=== PATIENT | male | born 2000 | race Caucasian/White ===

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

== ENCOUNTER → 2022-07-03 | Outpatient (CLI) | payer BC ==
--- NOTE | 2022-07-03 16:11 | US ---
EXAMINATION TYPE: US scrotum with doppler. Grayscale and color Doppler Duplex imaging performed of t he scrotum. DATE OF EXAM: 07/03/2022 COMPARISON: NONE CLINICAL HISTORY: N50.811 rt testicular pain. EXAM MEASUREMENTS: TESTICLES: Right Testicle: 4.5 x 2.5 x 3.1 cm Left Testicle: 4.3 x 2.3 x 3.0 cm EPIDIDYMIS HEAD: Right Epididymis: 1.1 cm Left Epididymis: 1.0 cm Doppler performed to assess for testicular vascularity; good bilateral color flow and waveforms are s een. There is no evidence of testicular torsion. Presence of hydroceles: no Presence of varicoceles: no Normal appearing testicular ultrasound. IMPRESSION: Appropriate color Doppler flow to the right testis including arterial and venous spectral waveforms.
== END | disposition home or self-care (01) ==
LOC: RADUSWWP 15:29
PROVIDERS: ATTEND Student in an Organized Health Care Education/Training Program
DX: N50.811 Right testicular pain (principal)
CPT/HCPCS: 76870; 93975

== ENCOUNTER → 2023-10-20 | Outpatient (CLI) | payer BC ==
--- NOTE | 2023-10-21 08:01 | US ---
EXAMINATION TYPE: US liver DATE OF EXAM: 10/20/2023 COMPARISON: NONE CLINICAL INDICATION: Male, 23 years old with history of R74.01 ELEVATION OF LEVELS OF LIVER TRANSAMIN ASE LEVELS; TECHNIQUE: Multiple sonographic images of the right upper quadrant are obtained. FINDINGS: EXAM MEASUREMENTS: Liver Length: 16.0 cm Gallbladder Wall: 0.17 cm CBD: 0.31 cm Right Kidney: 12.6 x 4.7 x 4.9 cm Pancreas: Appears wnl Liver: Diffuse increased echogenicity. Possible focal fatty sparing noted adjacent to gallbladder Gallbladder: appears wnl Evidence for sonographic Carlos's sign: no CBD: wnl Right Kidney: wnl IMPRESSION: 1. Moderate to severe hepatic steatosis. Appropriate clinical management is advised. 2. No gallstones or biliary ductal dilatation.
== END | disposition home or self-care (01) ==
LOC: RADUSWWP 07:35
PROVIDERS: ATTEND Family Medicine
DX: K76.0 Fatty (change of) liver, not elsewhere classified (principal); R74.01 Elevation of levels of liver transaminase levels
CPT/HCPCS: 76705